=== PATIENT | male | born 1980 | race Hispanic/Latino ===

== ENCOUNTER 2022-01-18 11:47 | Emergency (ER) | payer OTHER ==
[~2022-01-18] VITALS: Ht 162.6 cm; Wt 84.4 kg
[2022-01-18 11:49] VITALS: BP 128/87
[2022-01-18] MEDS ORDERED: ACETAMINOPHEN 500 MG TABLET ONE ×2 (11:56→13:28)
[2022-01-18 12:36] LABS: BASOPHILS % (AUTO) 0.5 % (0.0-5.0); EOSINOPHILS % (AUTO) 0.2 % (0.0-8.0); HEMATOCRIT 45.1 % (42-54); LYMPHOCYTES % (AUTO) 6.3 % (21.0-51.0); MEAN CORPUSCULAR HEMOGLOBIN 30.5 pg (27.0-33.0); MEAN CORPUSCULAR HGB CONC 34.4 g/dL (32.0-36.0); MEAN CORPUSCULAR VOLUME 88.8 fL (79-99); MONOCYTES % (AUTO) 14.2 % (3.0-13.0); NEUTROPHILS % (AUTO) 78.3 % (40.0-77.0); PLATELET COUNT (AUTO) 244 K/uL (130-400); RED BLOOD CELL COUNT(AUTO) 5.08 MIL/uL (4.50-6.20); RED CELL DISTRIBUTION WIDTH 12.7 % (11.0-15.5); WHITE BLOOD COUNT (AUTO) 11.4 K/uL (4.8-10.8)
[2022-01-18 12:49] LABS: CREATININE 1.3 mg/dL (0.5-1.5); POTASSIUM 4.1 mmol/L (3.5-5.1)
[2022-01-18] MEDS ORDERED: IBUPROFEN 400 MG TABLET ONE (12:50)
[2022-01-18 13:00] LABS: ALBUMIN 3.8 g/dL (3.5-5.0); TOTAL PROTEIN, SERUM 7.6 g/dL (6.0-8.3)
[2022-01-18] MEDS ORDERED: GUAIFENESIN-CODEINE 5 ML SYRUP ONE (13:29)
[2022-01-18] MEDS ORDERED: OSELTAMIVIR PHOSPHATE 75 MG CAP ONE (13:29)
[2022-01-18] MEDS ORDERED: GUAIFENESIN-CODEINE 5 ML SYRUP PO ONE (13:30)
[2022-01-18] MEDS ORDERED: OSELTAMIVIR PHOSPHATE 75 MG CAP PO SCH (13:30)
[2022-01-18] MEDS ORDERED: ACETAMINOPHEN 500 MG TABLET PO ONE ×2 (13:30→14:00)
[2022-01-18] MEDS ORDERED: D-ME1POW16 PO (13:34)
[2022-01-18] MEDS ORDERED: OSEL75 PO (13:34)
[2022-01-18] MEDS ORDERED: IBUP-2071 PO (13:34)
[2022-01-18] MEDS ORDERED: IBUPROFEN 400 MG TABLET PO ONE (14:00)
== END 2022-01-18 13:45 | disposition home or self-care (01) ==
LOC: EDH 11:47
DX: J10.1 Influenza due to other identified influenza virus with other respiratory manifestations (principal); R05.9 Cough, unspecified; Z20.822 Contact with and (suspected) exposure to COVID-19
CPT/HCPCS: 99284; 71045; 87635; 80053; 85025; 87804 ×2; 36415; C9803